=== PATIENT | female | born 1980 | race Caucasian/White ===

== ENCOUNTER 2018-03-20 17:42 | Inpatient (IN) ==
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
[2018-03-20] MEDS ORDERED: Mag Hydrox/Al Hydrox/Simeth 30 ML UDC PO PRN (22:14)
[2018-03-20] MEDS ORDERED: *HR* LORazepam 2 MG/ML VIAL IM PRN (22:14)
[2018-03-20] MEDS ORDERED: Haloperidol Lactate 5 MG/ML VIAL IM PRN (22:14)
[2018-03-20] MEDS ORDERED: *HR* LORazepam 1 MG TABLET PO PRN (22:14)
[2018-03-20] MEDS ORDERED: MOM Conc 10 ML UD.LIQ PO PRN (22:14)
[2018-03-20] MEDS ORDERED: Nicotine 21 MG PATCH.TD24 TD ONE (22:17)
[2018-03-20] MEDS: traZODone 50 MG TABLET PO PRN (23:50)
[2018-03-20] MEDS: hydrOXYzine pamoate 25 MG CAPSULE PO PRN (23:50)
[2018-03-20] MEDS: Ibuprofen 400 MG TABLET PO PRN (23:50)
[2018-03-21] MEDS ORDERED: Nicotine 21 MG PATCH.TD24 TD ONE (12:20)
[2018-03-21] MEDS: Ibuprofen 400 MG TABLET PO PRN (13:25)
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
[2018-03-21] MEDS: hydrOXYzine pamoate 25 MG CAPSULE PO PRN ×2 (14:50→21:35)
[2018-03-21] MEDS: traZODone 50 MG TABLET PO PRN (21:35)
[2018-03-22] MEDS ORDERED: traZODone 50 MG TABLET PO PRN (07:40)
[2018-03-22] MEDS: hydrOXYzine pamoate 25 MG CAPSULE PO PRN ×3 (09:42→20:53)
--- NOTE | 2018-03-22 12:38 | Psychiatry Progress Note ---
Date of Encounter: 03/22/18 Time of Encounter: 07:20 Subjective Interval history: Patient reports she is feeling better. No SI/HI. No psychosis. She is more future oriented. Is tolerating the meds. She is having a sore throat. Review of Systems Ears, Nose, Throat: Reports: throat pain Psychiatric: Reports: depression, anxiety Results - Vital Signs Vital Signs: Temp Pulse Resp BP Pulse Ox 98.2 F 82 16 112/76 98 03/22/18 08:56 03/22/18 08:56 03/22/18 08:56 03/22/18 08:56 03/22/18 08:56 Assessment and Plan (1) Depressed Current visit: Yes Status: Acute Plan: Continue hospitalization, Close observation, Suicide Precautions per unit protocol, Encourage participation in unit milieu, Group Therapy, Monitor sleep, Monitor appetite Additional Plan: continue medications Risks, benefits, side effects, alternatives discussed w/pt: Yes Patient agreeable to treatment: Yes Qualifiers: Depression Type: major depressive disorder Major depression recurrence: recurrent Active/Remission status: currently active Major depression episode severity: severe Psychotic features: without psychotic features Qualified Code(s): F33.2 - Major depressive disorder, recurrent severe without psychotic features Consult Discharge Plan - Plan Psychiatry Exam - Constitutional Vitals: Temp Pulse Resp BP Pulse Ox 98.2 F 82 16 112/76 98 03/22/18 08:56 03/22/18 08:56 03/22/18 08:56 03/22/18 08:56 03/22/18 08:56 General appearance: age & developmentally appropriate, well-nourished - Musculoskeletal Gait: normal Station: relaxed Strength & Tone: normal for patient - Psychiatric Patient Orientation: Yes Person, Yes Time, Yes Place Level of alertness: Alert Behavior: calm, cooperative Psychomotor activity: Normal Eye Contact: Maintains Eye Contact Mood Description: Euthymic/stable Affect description: congruent with mood, full range Speech Volume: Normal Speech pattern: normal rate, normal rhythm, normal tone, fluent, spontaneous Language & Vocabulary: consistent with education Thought Process: Linear, Goal Oriented Thought Content: No Suicidal ideation, No Homicidal ideation, No Overt delusions Perceptual Disturbances: No Auditory hallucinations, No Visual hallucinations Attention Span Ability: Capable of Focused Attention Memory Description: Grossly Intact Patient Reliability: Reliable Historian Fund of knowledge: Yes abstraction ability, Yes aware of current events Intelligence Estimate: Average Judgment: Limited Insight: Partial
[2018-03-22] MEDS: Ibuprofen 400 MG TABLET PO PRN (19:52)
[2018-03-23] MEDS: hydrOXYzine pamoate 25 MG CAPSULE PO PRN (08:34)
[2018-03-23] MEDS ORDERED: Nicotine 21 MG PATCH.TD24 TD SCH (09:00)
[2018-03-23 09:56] VITALS: BP 116/75
--- NOTE | 2018-03-23 10:04 | Discharge Summary ---
Date of Encounter: 03/23/18 Time of Encounter: 09:59 Diagnosis - Discharge Diagnosis (1) Depressed Status: Acute Qualifiers: Depression Type: major depressive disorder Major depression recurrence: re current Active/Remission status: currently active Major depression episode severity: severe Psychotic features: without psychotic features Qualified Code(s): F33.2 - Major depressive disorder, recurrent severe without psychotic features Medications - Discharge Medications Prescriptions: hydrOXYzine pamoate [HydrOXYzine Pamoate] 25 mg PO TID PRN #90 capsule PRN Reason: Anxiety Sertraline [Zoloft] 25 mg PO DAILY #30 tablet traZODone [TraZODone] 100 mg PO HS PRN #30 tablet PRN Reason: Insomnia Albuterol Sulfate [Proair Hfa] 2 puff IH Q4HR PRN #1 inh 10/31/16 [Rx] Benzonatate [Tessalon] 100 mg PO TID PRN #18 capsule 10/31/16 [Rx] Benzocaine/Menthol Dominick [Cepacol Sore Throat Lozenge] 1 each MM Q2H PRN lozenge 03/23/18 [Rx] Sertraline [Zoloft] 25 mg PO DAILY #30 tablet 03/23/18 [Rx] hydrOXYzine pamoate [HydrOXYzine Pamoate] 25 mg PO TID PRN #90 capsule 03/23/18 [Rx] traZODone [TraZODone] 100 mg PO HS PRN #30 tablet 03/23/18 [Rx] Allergy/AdvReac Type Severity Reaction Status Date / Time Penicillins Allergy Hives Verified 03/20/18 17:59 terbutaline [From Brethine] Allergy Nausea Verified 03/20/18 17:59 Provider Date of admission: 03/21/18 11:02 Primary care physician: PCP NONE Discharging clinician: Hoa Haney Psychiatry Exam - Constitutional Vitals: Temp Pulse Resp BP Pulse Ox 98 F 82 18 116/75 99 03/23/18 09:00 03/23/18 09:00 03/23/18 09:00 03/23/18 09:00 03/23/18 09:00 Additional observations: Patient is alert and oriented [address] time and situation, muscle tone grossly intact, speech normal limits for rhythm, rate, content and volume. Muscle tone is normal for patient. Grooming and hygiene are appropriate and eye contact is maintained appropriately. The patient appears age appropriate. Behavior is cooperative. Thought content is negative for suicidal or homicidal thoughts ideations or plans. There are no hallucinations or delusions. Mood is good and affect is reactive, consistent and congruent. Thought process is linear, logical, goal oriented and coherent thought. Memory is intact to recent and remote as the patient is able to recall several items after a delay and can consistently recall childhood information. Language and vocabulary are consistent with education and intelligence is estimated to be average based on education and general fund of information. Concentration and attention are sustained and appropriate. Insight and judgment are intact as the patient agrees with the mental health diagnosis and the need for ongoing mental health treatment. Hospital Course Hospital course: Ms. Frankel is a 37 year old female who was admitted for depression and suicidal ideation. She was started on zoloft for depression with prn vistaril for anxiety and trazadone for insomnia. Patient was educated of diagnosis and the risk-benefit side effects of this alternative treatment options and was monitored for responsiveness and side effects. Mood anxiety sleep and appetite interest improved as did future orientation. Self-harm thoughts subsided, thinking cleared, psychosis resolved, and mood stabilized. Patient was able to attend both individual and group therapy sessions as well as meet with the psychiatrist daily and urged to discuss any medication or treatment issues or other concerns. The patient was educated primarily by verbal means about their diagnosis and manifestations in their life. The option for treatment including group and individual therapy programming was offered to the patient in addition to the use of medications with all their potential risks, benefits, and side effects as well as the risks of not taking medication and non-adhereance were discussed with the patient at length. The patient was given the opportunity to ask questions and was noted to participate in the treatment in the planning process. The patient felt ready and eager to be discharged from the inpatient psychiatric unit to continue on with treatment as an outpatient. The patient agreed that is they were safe for this disposition. The patient was considered to be able to participate in informed consent and decision making with respect to medical, legal, and financial issues of the time of discharge. At the time of discharge the patient adamantly denied any concerns for lethality including suicidal or homicidal thoughts ideations or plans and was future oriented toward ongoing mental health care, medical follow-up and sobriety. Time spent discussing smoking cessation with patient: 3 to 10 minutes Does patient wish to continue nicotine replacement upon disc: No - Time Spent with Patient Total time spent providing and/or coordinating discharge services: Less than 30 minutes Specific discharge activities: Interval history reviewed. Available labs reviewed . Psychotherapy provided. Patient had an opportunity to ask questions and address concerns. Patient was in agreement with the treatment plan. The risks benefits and side effects of medications were discussed with the patient, including alternatives and treatment. The patient was educated on the abstaining from any alcohol or illicit substances, following up with all scheduled appointments, and taking all medications as prescribed. The patient was educated on 90 meetings in 90 days and to find a sponsor. Assessment and Plan - Patient/Caregiver Discharge Instructions Activity: resume usual activities as tolerated Diet: regular diet Additional Instructions: Continue current medications. Follow up with outpatient mental health. Encourage continued therapy in a group or individual setting. The patient was discharged to home. - Follow up Plan Follow up with: NONE,PCP [Primary Care Provider] - Functional capacity at discharge: independent ambulation Overall status at discharge: Stable Disposition: Transfer Inpatient Rehab Fac Quality - Multiple Antipsychotics Patient discharged on 2 or more antipsychotic medications: No Procedures - Procedures Procedures: Medication Management, Crisis Stabilization, Supportive Therapy, G roup Therapy, Psychoeducational Therapy
== END 2018-03-23 11:05 | DRG 751 ==
LOC: EMEROOARM 17:42 → 1ANU 22:00 → INTOOBSV 22:00 → 1ANU 22:38
PROVIDERS: ADMIT Psychiatry & Neurology Psychiatry; ATTEND Psychiatry & Neurology Psychiatry